=== PATIENT | male | born 1970 | race African-American/Black ===

== ENCOUNTER 2017-02-17 02:12 | Emergency (ER) | payer OTHER ==
[~2017-02-17 02:12] MED LIST: ACETAMINOPHEN325 MG PO; ASPIRIN81 MG PO; CATAPRES0.1 MG PO; CHLORTHALIDONE25 MG PO; HYDRALAZINE HC100 MG PO; K-DUR20 ME1 PO; LIPITOR20 MG DOB; LISINOPRIL20 MG PO; NORVASC10 MG PO; XANAX0.5 M1 DOB
== END 2017-02-17 08:35 | disposition home or self-care (01) ==
LOC: CED 02:12
DX: T78.3XXA Angioneurotic edema, initial encounter (principal); T46.4X5A Adverse effect of angiotensin-converting-enzyme inhibitors, initial encounter; I10 Essential (primary) hypertension
CPT/HCPCS: 36415; 96372; 96374; 96375; 99284; J0171; J1200; J2930